=== PATIENT | female | born 1980 | race Caucasian/White ===

== ENCOUNTER 2016-08-13 10:52 | Observation (INO) | payer OTHER ==
[~2016-08-13] VITALS: Ht 167.6 cm; Wt 114.4 kg
[~2016-08-13 10:52] MED LIST: LANTUS 10100 UNITS/ SC; METFORMIN HCL500 M1; METFORMIN HCL500 MG PO; NOHOMEMEDS; OMEPRAZOLE10 M1 PO; OMEPRAZOLE20 MG PO; TECFIDERA240 MG PO; VITAMIN D5000 UNI1 PO; ZANTAC150 M1 PO; ZYRTEC10 M2 PO; ZYRTEC10 M3 PO
[2016-08-13 11:44] LABS: HEMATOCRIT 37.8 % (36.0-46.0); MCH 26.8 PG (29.0-34.0); MCHC 33.3 G/DL (30.0-36.0); MCV 80.4 FL (83-99); MEAN PLAT.VOLUME 10.7 uM^3 (9.5-12.4); PLATELET COUNT 292 K/uL (156-360); RBC DIS.WIDTH-SD 40.2 % (39-53); WHITE BLOOD COUNT 7.9 K/uL (4.1-10.2)
[2016-08-13 12:03] LABS: CHLORIDE 108 mEq/L (99-109); POTASSIUM 4.2 mEq/L (3.7-5.4); SODIUM 139 mEq/L (136-147)
[2016-08-13 12:05] LABS: GLUCOSE 178 mg/dL (70-99)
[2016-08-13 12:06] LABS: TROP-I INTERPRETATION NEGATIVE; TROPONIN-I < 0.01 ng/mL (0.0-0.30)
[2016-08-13 12:07] LABS: ANION GAP 12 MEQ/L (2-14)
[2016-08-13 12:09] LABS: GFR ESTIMATE (CALCULATED) > 59 mL/min/
[2016-08-13 12:10] LABS: UREA NITROGEN (BUN) 12 mg/dL (9-23)
[2016-08-13] MEDS ORDERED: METFORMIN HCL500 MG PO (13:14)
[2016-08-13] MEDS ORDERED: FLONASE16 G1 BOTH NARES (13:15)
[2016-08-13 13:29] LABS: QUANTITATIVE HCG < 4.0 MIU/ML
[2016-08-13 15:13] VITALS: BP 133/79
[2016-08-13 17:34] LABS: POINT-OF-CARE METER ID UU14162513
[2016-08-13 19:07] LABS: TROP-I INTERPRETATION NEGATIVE; TROPONIN-I < 0.01 ng/mL (0.0-0.30)
[2016-08-13 20:20] VITALS: BP 150/93
[2016-08-13 20:45] LABS: POINT-OF-CARE METER ID UU13113700
[2016-08-13 21:50] LABS: POINT-OF-CARE METER ID UU13113700
[2016-08-13 23:56] VITALS: BP 117/69
[2016-08-14 00:51] LABS: TROP-I INTERPRETATION NEGATIVE; TROPONIN-I < 0.01 ng/mL (0.0-0.30)
[2016-08-14 04:33] VITALS: BP 120/72
[2016-08-14 06:41] LABS: HDL CHOLESTEROL 27 MG/DL (Desirable>=50); LDL CHOLESTEROL 88 mg/dL (Desirable<100); NON-HDL CHOLESTEROL 114 mg/dL (Desirable<160); TOTAL CHOLESTEROL 141 mg/dL (Desirable<200); TRIGLYCERIDES 129 MG/DL (Normal: <150)
[2016-08-14 07:33] LABS: POINT-OF-CARE METER ID UU13113700
[2016-08-14 07:48] VITALS: BP 156/74
[2016-08-14 16:55] VITALS: BP 124/73
[2016-08-14 17:38] LABS: POINT-OF-CARE USER ID ENVKC36
[2016-08-14 19:12] VITALS: BP 145/69
[2016-08-14 23:28] VITALS: BP 134/77
[2016-08-15 03:00] VITALS: BP 118/62
[2016-08-15 07:19] VITALS: BP 117/58
[2016-08-15] MEDS ORDERED: ATORVASTATIN CA40 MG PO (10:54)
== END 2016-08-15 12:38 | disposition home or self-care (01) ==
LOC: EME 10:52 → 5WEST 13:21 → EDOF 13:21 → 5WEST 14:16 → 4EAST 08-14 14:15
PROVIDERS: Hospitalist; Internal Medicine
DX: R07.9 Chest pain, unspecified (principal); R06.02 Shortness of breath; E11.9 Type 2 diabetes mellitus without complications; G35 Multiple sclerosis; E66.01 Morbid (severe) obesity due to excess calories; Z68.41 Body mass index [BMI] 40.0-44.9, adult; F41.9 Anxiety disorder, unspecified; Z82.49 Family history of ischemic heart disease and other diseases of the circulatory system; R94.39 Abnormal result of other cardiovascular function study; Z79.4 Long term (current) use of insulin; Z88.6 Allergy status to analgesic agent; Z88.2 Allergy status to sulfonamides; Z88.0 Allergy status to penicillin; Z88.1 Allergy status to other antibiotic agents; Z88.8 Allergy status to other drugs, medicaments and biological substances; Z91.018 Allergy to other foods
CPT/HCPCS: 71020; 80048; 80061; 82948; 84484; 84702; 85027; 93005; 99281; 99285; C1769; C1887; C1894; G0378; J1644; J2250; J3010; J7040; J7050

== ENCOUNTER 2017-03-25 16:25 | Observation (INO) | payer OTHER ==
[~2017-03-25] VITALS: Ht 167.6 cm; Wt 133.4 kg
[~2017-03-25 16:25] MED LIST changes: +ATORVASTATIN CA40 MG PO; +FLONASE16 G1 BOTH NARES
[2017-03-25 17:21] LABS: HEMATOCRIT 38.7 % (36.0-46.0); MCH 25.5 PG (29.0-34.0); MCV 79.5 FL (83-99); PLATELET COUNT 250 K/uL (156-360); RBC DIS.WIDTH-CV 13.7 % (11.8-14.6); RBC DIS.WIDTH-SD 39.2 % (39-53); RED BLOOD COUNT 4.87 M/uL (3.80-5.20); WHITE BLOOD COUNT 6.8 K/uL (4.1-10.2)
[2017-03-25 17:32] LABS: CHLORIDE 105 mEq/L (99-109); POTASSIUM 4.4 mEq/L (3.7-5.4); SODIUM 140 mEq/L (136-147)
[2017-03-25 17:34] LABS: GLUCOSE 190 mg/dL (70-99)
[2017-03-25 17:35] LABS: ANION GAP 10 MEQ/L (2-14)
[2017-03-25 17:37] LABS: GFR ESTIMATE (CALCULATED) > 59 mL/min/
[2017-03-25 17:38] LABS: UREA NITROGEN (BUN) 12 mg/dL (9-23)
[2017-03-25 17:43] LABS: TROP-I INTERPRETATION NEGATIVE; TROPONIN-I < 0.01 ng/mL (0.0-0.30)
[2017-03-25 19:35] LABS: QUANTITATIVE HCG < 4.0 MIU/ML
[2017-03-25 21:54] LABS: TROP-I INTERPRETATION NEGATIVE; TROPONIN-I < 0.01 ng/mL (0.0-0.30)
[2017-03-25] MEDS ORDERED: PRILOSEC20 MG PO (22:11)
[2017-03-25] MEDS ORDERED: GOLD BOND ULT D96 GM TP (22:12)
[2017-03-25] MEDS ORDERED: TRULICITY0.75 MG/0. SC (22:12)
[2017-03-26 01:20] VITALS: BP 157/76
[2017-03-26 04:02] VITALS: BP 138/73
[2017-03-26 05:53] LABS: TROP-I INTERPRETATION NEGATIVE; TROPONIN-I < 0.01 ng/mL (0.0-0.30)
[2017-03-26 07:52] LABS: POINT-OF-CARE METER ID UU14162513
[2017-03-26 08:51] VITALS: BP 128/62
== END 2017-03-26 10:46 | disposition home or self-care (01) ==
LOC: EME 16:25 → EDOF 23:52 → 5WEST 23:52 → ENRESERV 23:54 → 5WEST 03-26 00:42
PROVIDERS: Hospitalist; Physician Assistant
DX: R07.89 Other chest pain (principal); E11.9 Type 2 diabetes mellitus without complications; E66.01 Morbid (severe) obesity due to excess calories; Z68.42 Body mass index [BMI] 45.0-49.9, adult; G35 Multiple sclerosis; Z86.19 Personal history of other infectious and parasitic diseases; Z79.4 Long term (current) use of insulin; Z79.82 Long term (current) use of aspirin; Z88.0 Allergy status to penicillin; Z88.2 Allergy status to sulfonamides; Z88.8 Allergy status to other drugs, medicaments and biological substances; Z91.018 Allergy to other foods
CPT/HCPCS: 71020; 71275; 80048; 82948; 84443; 84484; 84702; 85027; 93005; 99281; 99285; G0378; J7030

== ENCOUNTER 2017-09-05 01:30 | Emergency (ER) | payer OTHER ==
[~2017-09-05] VITALS: Ht 167.6 cm; Wt 129.6 kg
[~2017-09-05 01:30] MED LIST changes: +GOLD BOND ULT D96 GM TP; +PRILOSEC20 MG PO; +TRULICITY0.75 MG/0. SC
[2017-09-05 04:51] LABS: CHLORIDE 102 mEq/L (99-109); POTASSIUM 4.7 mEq/L (3.7-5.4); SODIUM 134 mEq/L (136-147)
[2017-09-05 04:57] LABS: CREATININE 1.2 mg/dL (0.6-1.3); GFR ESTIMATE (CALCULATED) 54 mL/min/
[2017-09-05 04:58] LABS: UREA NITROGEN (BUN) 18 mg/dL (9-23)
[2017-09-05 05:11] LABS: GLUCOSE 591 mg/dL (70-99)
[2017-09-05 07:44] VITALS: BP 149/90
== END 2017-09-05 07:45 | disposition home or self-care (01) ==
LOC: EME 01:30
PROVIDERS: Emergency Medicine
DX: E11.65 Type 2 diabetes mellitus with hyperglycemia (principal); G35 Multiple sclerosis; K21.9 Gastro-esophageal reflux disease without esophagitis; F41.9 Anxiety disorder, unspecified; F32.9 Major depressive disorder, single episode, unspecified; Z87.440 Personal history of urinary (tract) infections; Z90.49 Acquired absence of other specified parts of digestive tract; Z88.2 Allergy status to sulfonamides; Z88.0 Allergy status to penicillin; Z88.8 Allergy status to other drugs, medicaments and biological substances
CPT/HCPCS: 80048; 82948; 99281; 99285; J7030